=== PATIENT | female | born 1980 ===

== ENCOUNTER 2018-06-06 21:39 | Emergency (ER) | payer MEDICAID ==
[2018-06-06 23:06] VITALS: O2SAT 97
--- NOTE | 2018-06-06 23:23 | ED PDOC ---
HPI: Female Pain Chief Complaint (Provider): : pain/spotting History Per: Patient History/Exam Limitations: no limitations Onset/Duration Of Symptoms: Days (1) Current Symptoms Are (Timing): Still Present Quality Of Discomfort: Cramping Additional Complaint(s): 37 y/o female, approximately 10 weeks gestation, presents for evaluation of vaginal spotting x 1 day. ASsociated intermittent cramping x 3 days. Patient states she saw blood on tissue after urinating, prompting ED visit. Denies fever, nausea/vomiting, chest pain, shortness of breath, palpitations, abdominal pain, changes in bowel movements, urinary symptoms. Patient has appt with [facility] on 06/14/18 Abnormal Vaginal Bleeding: Yes Last Menstral Period: 04/04/18 : 1 Para: 0 Miscarriage: 0 <Willow Garcia - Last Filed: 06/07/18 04:55> <Spencer Johnson - Last Filed: 06/08/18 03:48> Time Seen by Provider: 06/06/18 23:09 Chief Complaint (Nursing): Female Genitourinary Past Medical History Reviewed: Historical Data, Nursing Documentation, Vital Signs Vital Signs: Last Vital Signs Temp 98.5 F 06/06/18 23:03 Pulse 63 06/06/18 23:03 Resp 18 06/06/18 23:03 BP 124/82 06/06/18 23:03 Pulse Ox 97 06/06/18 23:03 - Medical History PMH: No Chronic Diseases - Surgical History Surgical History: No Surg Hx - Family History Family History: States: No Known Family Hx <Willow Garcia - Last Filed: 06/07/18 04:55> Vital Signs: Last Vital Signs Temp 98.4 F 06/07/18 05:00 Pulse 70 06/07/18 05:00 Resp 16 06/07/18 05:00 BP 101/62 06/07/18 05:00 Pulse Ox 97 06/07/18 05:00 <Spencer Johnson - Last Filed: 06/08/18 03:48> - Home Medications Home Medications: Ambulatory Orders Medication Instructions Recorded Nitrofurantoin Macrocrystals 100 mg PO BID #13 cap 06/07/18 [Macrobid] - Allergies Allergies/Adverse Reactions: Allergies Allergy/AdvReac Type Severity Reaction Status Date / Time No Known Allergies Allergy Verified 06/06/18 23:03 Review of Systems ROS Statement: Except As Marked, All Systems Reviewed And Found Negative Genitourinary Female: Positive for: Vaginal Bleeding, Pelvic Pain <Willow Garcia - Last Filed: 06/07/18 04:55> Physical Exam - Reviewed Nursing Documentation Reviewed: Yes Vital Signs Reviewed: Yes - Physical Exam Appears: Positive for: Well, Non-toxic, No Acute Distress Head Exam: Positive for: ATRAUMATIC, NORMAL INSPECTION, NORMOCEPHALIC Skin: Positive for: Normal Color Eye Exam: Positive for: Normal appearance ENT: Positive for: Normal ENT Inspection Cardiovascular/Chest: Positive for: Regular Rate, Rhythm Respiratory: Positive for: Normal Breath Sounds Gastrointestinal/Abdominal: Positive for: Tenderness (diffuse discomfort to palpation of lower abdomen) Pelvic Exam: Positive for: External Exam Normal, No Cerv. 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 Absent cardiac activity Patient educated on findings, advised f/up in 48 hours for repeat Hcg, u/s Rx Macrobid given (dose given in ED) Return precautions given <Willow Garcia - Last Filed: 06/07/18 04:55> - Laboratory Results Result Diagrams: 06/06/18 23:55 06/06/18 23:55 <Spencer Johnson - Last Filed: 06/08/18 03:48> Disposition - Patient ED Disposition Is Patient to be Admitted: No Counseled Patient/Family Regarding: Studies Performed, Diagnosis, Need For Followup, Rx Given - Disposition Disposition: Routine/Home Disposition Time: 04:56 <Willow Garcia - Last Filed: 06/07/18 04:55> <Spencer Johnson - Last Filed: 06/08/18 03:48> - Clinical Impression Clinical Impression: UTI (urinary tract infection), Threatened miscarriage - Disposition Condition: STABLE Prescriptions: Nitrofurantoin Macrocrystals [Macrobid] 100 mg PO BID #13 cap Instructions: Urinary Tract Infections in Adults, Threatened Miscarriage Print Language: DJIBOUTIAN - PA / [employer] / Resident Statement / has reviewed & agrees with the documentation as recorded. <Spencer Johnson - Last Filed: 06/08/18 03:48>
[2018-06-07 00:07] LABS: BASO # 0.1 K/uL (0.0-0.2); BASO % 0.8 % (0.0-2.0); EOS # 0.1 K/uL (0.0-0.7); HEMOGLOBIN 12.5 g/dL (12.0-16.0); LYMPH # 2.6 K/uL (1.0-4.3); LYMPH % 30.8 % (20.0-40.0); MEAN CELL VOLUME 88.7 fl (81.0-99.0); MEAN CORPUSCULAR HGB CONC 33.8 g/dL (33.0-37.0); MEAN PLATELET VOLUME 8.1 fl (7.2-11.7); MONO # 0.7 K/uL (0.0-0.8); MONO % 7.9 % (0.0-10.0); NEUT # 5.1 K/uL (1.8-7.0); NEUT % 59.5 % (50.0-75.0); NRBC % 0.1 % (0.0-0.0); RBC 4.17 Mil/uL (3.80-5.20); RED CELL DISTRIBUTION WIDTH 14.5 % (11.5-14.5); WHITE BLOOD COUNT 8.6 K/uL (4.8-10.8)
[2018-06-07 00:15] LABS: URINE COLOR YELLOW (YELLOW)
[2018-06-07 00:16] LABS: ALB/GLOB RATIO 1.1 (1.0-2.1); ALBUMIN 4.1 g/dL (3.5-5.0); ALT/SGPT 36 U/L (9-52); AST/SGOT 25 U/L (14-36); BLOOD UREA NITROGEN 15 mg/dl (7-17); CALCIUM 9.4 mg/dL (8.4-10.2); GFR NON-AFRICAN AMERICAN > 60; SQUAMOUS EPITHIAL 3 /hpf (0-5); URINE BACTERIA RARE (<OCC); URINE BILIRUBIN NEGATIVE (NEGATIVE); URINE BLOOD LARGE (NEGATIVE); URINE CLARITY SLIGHTY-CLOUDY (Clear); URINE GLUCOSE (UA) NEG (Normal); URINE LEUKOCYTE ESTERASE SMALL Leu/uL (Negative); URINE PROTEIN NEGATIVE (NEGATIVE); URINE UROBILINOGEN 0.2-1.0 mg/dL (0.2-1.0)
[2018-06-07 05:23] VITALS: BP 101/62; PULSE 70; RESP 16; TEMP 98.4
--- NOTE | 2018-06-07 10:58 | US ---
Date of service: 06/07/2018 PROCEDURE: ultrasound. HISTORY: . Beta HCG 3563.6 units. Presenting with spotting and cramping. LMP 03/08/2018 COMPARISON: None TECHNIQUE: Standard protocol for this study/examination. FINDINGS: LMP: 03/08/2018 Prior examinations from the current : None TECHNIQUE: Real-time 2D imaging, duplex and color Doppler. FINDINGS: Cardiac activity: Absent Measurements: [place] rump length: 1.70 cm Gestational age based on CRL 8 weeks 1 day Gestational age 8 weeks 1 day based on gestational sac measurement 3.17 cm Gestational age derived from LMP: 13 weeks ANAND based on LMP: 12/13/2018 ANAND based on biometry: 01/16/2019 Gestational discordance approximately 5 weeks Yolk sac identified Cervix: No Cervical abnormalities: Negative examination for cervical dilatation or effacement. Closed cervix measuring cm Subchorionic hemorrhage: None UTERUS: 3.55 cm. ADNEXA: Right: 2.2 x 3.7 x 4.4 cm. Normal Doppler arterial waveform documented. Simple cyst 9 x 15 mm. Left: 2.3 x 3.3 x 3.3 cm. 11 mm cyst normal Doppler arterial waveform documented Fluid in the cul-de-sac: None IMPRESSION: 8 weeks intrauterine gestation, 5 weeks discordance with at derived from LMP. Absence of cardiac activity highly suggestive of intrauterine demise. Concordant results (preliminary interpretation) provided by MAYELA BENJAMIN. Procedure Completed: 02:13. Preliminary Report: Dictated and Authenticated: 04:37. Final Interpretation: 10:56.
== END 2018-06-07 05:10 | disposition home or self-care (01) ==
LOC: H.ER 21:39
DX: O23.41 Unspecified infection of urinary tract in pregnancy, first trimester (principal); O20.0 Threatened abortion; Z3A.10 10 weeks gestation of pregnancy